=== PATIENT | female | born 1965 | race Two or more races ===

== ENCOUNTER 2023-10-22 05:24 | Inpatient (IN) | payer BC, MEDICARE ==
[~2023-10-22] VITALS: Ht 157.5 cm; Wt 98.9 kg
[2023-10-22 06:35] LABS: Basophils # (auto) 0 10 ^3/uL (0-0.2); Basophils % (auto) 0.5 % (0.0-2.0); Eosinophils # (auto) 0.2 10 ^3/uL (0-0.8); Eosinophils % (auto) 3.7 % (0.0-7.0); Hematocrit 33.3 % (36.0-46.0); Hemoglobin 11.4 g/dL (12.2-16.2); Lymphocytes % (auto) 21.3 % (10.0-50.0); Mean Corpuscular Hemoglobin 31.9 pg (28.0-32.0); Mean Corpuscular Hgb Conc. 34.1 g/dL (32.0-36.0); Mean Corpuscular Volume 93.6 fL (80.0-100.0); Monocytes # (auto) 0.4 10 ^3/uL (0-1.3); Monocytes % (auto) 9.1 % (0.0-12.0); Neutrophils % (auto) 65.4 % (37.0-80.0); Nucleated Red Blood Cells % 0.1 %; Red Blood Cells 3.55 10^6/uL (4.0-5.20); Red Cell Distribution Width 13.8 % (11.8-14.3); White Blood Cell 4.5 10^3/uL (4.4-10.8)
[2023-10-22 06:47] LABS: Alanine Aminotransferase 20 U/L (7-40); Albumin 4.2 g/dL (3.2-4.8); Alkaline Phosphatase 155 U/L (46-116); Anion Gap 14 (5-15); Aspartate Aminotransferase 25 U/L (13-40); BUN/Creatinine Ratio 16.9 (10.0-20.0); Blood Urea Nitrogen 30 mg/dL (9-23); Calcium 9.4 mg/dL (8.7-10.4); Carbon Dioxide 24 mmol/L (20-30); Chloride 102 mmol/L (98-107); Glucose 122 mg/dL (74-106); Potassium 3.3 mmol/L (3.5-5.1); Sodium 140 mmol/L (136-145)
[2023-10-22 06:48] LABS: Bilirubin, Total 0.7 mg/dL (0.2-1.0); Total Protein 7.4 g/dL (5.7-8.2)
[2023-10-22 06:57] VITALS: PULSE 112; RESP 24; O2SAT 97
[2023-10-22] MEDS: SODIUM CHLORIDE 0.9% 500 ML IV ONE (07:11)
[2023-10-22 07:45] VITALS: PULSE 120; RESP 18; O2SAT 96
[2023-10-22 07:57] LABS: Urine Bacteria FEW /hpf (None Seen); Urine Blood TRACE /uL (Negative); Urine Clarity Clear (Clear); Urine Color Light-Yellow (Yellow); Urine Protein, UAD 1+ (Negative); Urine Specific Gravity 1.014 (1.001-1.035); Urine Urobilinogen Normal (Negative); Urine WBC 6 /hpf (0 - 5); Urine pH 6.5 (5.0-9.0)
[2023-10-22] MEDS: IOHEXOL 350 MG/ML 100ML IJ ONE (08:33)
[2023-10-22] MEDS: LABETALOL HCL 20 MG/4 ML VL IV ONE (09:43)
[2023-10-22] MEDS ORDERED: MORPHINE SULFATE INJ 2 MG/ml SYRG IV PRN (11:15)
[2023-10-22] MEDS ORDERED: DOCUSATE SOD 100 MG CAP PO PRN (11:15)
[2023-10-22] MEDS ORDERED: ENOXAPARIN SOD 40 MG/0.4 ML SYRINGE SC SCH (11:15)
[2023-10-22] MEDS ORDERED: NITROGLYCERIN 0.4 MG SL TAB SL PRN (11:15)
[2023-10-22] MEDS ORDERED: ONDANSETRON HCL 4 MG/2 ML VIAL IV PRN (11:15)
[2023-10-22 11:42] LABS: Magnesium 2.1 mg/dL (1.6-2.6)
[2023-10-22 11:44] LABS: Phosphorus 4.3 mg/dL (2.4-5.1)
[2023-10-22] MEDS: SODIUM CHLORIDE 0.9% 1,000 ML IV SCH (14:26)
[2023-10-22] MEDS: POTASSIUM EFFERVESENT TAB 25 MEQ PO ONE (14:32)
[2023-10-22 16:01] LABS: COVID19 ANTIGEN SOFIA FIA NEGATIVE (NEGATIVE)
[2023-10-22 17:48] VITALS: BP 158/58; PULSE 80; RESP 19; TEMP 98.4; O2SAT 98
[2023-10-22] MEDS ORDERED: FURO40TA4 PO (18:08)
[2023-10-22] MEDS ORDERED: SEVE800T8 PO (18:08)
[2023-10-22] MEDS ORDERED: HYDR50TA47 PO (18:08)
[2023-10-22] MEDS ORDERED: AML5T PO (18:08)
[2023-10-22] MEDS: amLODIPine BESYLATE 5 MG TAB PO ONE (18:58)
[2023-10-22] MEDS: hydrALAZINE HCL 25 MG TAB PO ONE (18:58)
[2023-10-22 20:00] VITALS: PULSE 75; RESP 18; O2SAT 95
[2023-10-22 21:00] VITALS: BP_SYST 117; BP_SYST 146; BP_DIAS 61; PULSE 62; PULSE 86; RESP 20; TEMP 97.9; TEMP 98.6; O2SAT 93; O2SAT 95
[2023-10-22] MEDS: hydrALAZINE HCL 25 MG TAB PO SCH (21:46)
[2023-10-23] VITALS (8 sets, daily range): BP systolic 119–150; BP diastolic 49–58; PULSE 70–95; RESP 17–20; TEMP 89–98.6; O2SAT 92–96
[2023-10-23 07:06] LABS: Basophils # (auto) 0 10 ^3/uL (0-0.2); Basophils % (auto) 0.5 % (0.0-2.0); Eosinophils # (auto) 0.1 10 ^3/uL (0-0.8); Eosinophils % (auto) 3.7 % (0.0-7.0); Hematocrit 31.3 % (36.0-46.0); Hemoglobin 10.6 g/dL (12.2-16.2); Lymphocytes # (auto) 0.7 10 ^3/uL (0.4-5.4); Lymphocytes % (auto) 20.2 % (10.0-50.0); Mean Corpuscular Hemoglobin 32.2 pg (28.0-32.0); Mean Corpuscular Hgb Conc. 33.8 g/dL (32.0-36.0); Monocytes # (auto) 0.4 10 ^3/uL (0-1.3); Monocytes % (auto) 10.9 % (0.0-12.0); Neutrophils # (auto) 2.4 10 ^3/uL (1.6-8.6); Neutrophils % (auto) 64.7 % (37.0-80.0); Nucleated Red Blood Cells % 0.1 %; Red Blood Cells 3.29 10^6/uL (4.0-5.20); White Blood Cell 3.7 10^3/uL (4.4-10.8)
[2023-10-23 07:16] LABS: Alanine Aminotransferase 21 U/L (7-40); Albumin 3.7 g/dL (3.2-4.8); Alkaline Phosphatase 127 U/L (46-116); Anion Gap 9 (5-15); Aspartate Aminotransferase 23 U/L (13-40); BUN/Creatinine Ratio 12.9 (10.0-20.0); Blood Urea Nitrogen 20 mg/dL (9-23); Carbon Dioxide 22 mmol/L (20-30); Chloride 109 mmol/L (98-107); Glucose 109 mg/dL (74-106); Potassium 3.8 mmol/L (3.5-5.1); Sodium 140 mmol/L (136-145)
[2023-10-23 07:17] LABS: Bilirubin, Total 0.7 mg/dL (0.2-1.0); Total Protein 6.4 g/dL (5.7-8.2)
[2023-10-23] MEDS: amLODIPine BESYLATE 5 MG TAB PO SCH (10:12)
[2023-10-23] MEDS: METOPROLOL TARTRATE 50 MG TAB PO SCH (10:13)
[2023-10-24 01:00] VITALS: BP 123/47; PULSE 68; RESP 20; TEMP 98.4; O2SAT 94
[2023-10-24 05:00] VITALS: BP 116/56; PULSE 64; RESP 20; TEMP 98.2; O2SAT 92
[2023-10-24 05:47] LABS: Anion Gap 9 (5-15); Calcium 9.3 mg/dL (8.7-10.4); Carbon Dioxide 21 mmol/L (20-30); Chloride 107 mmol/L (98-107); Potassium 4.6 mmol/L (3.5-5.1); Sodium 137 mmol/L (136-145)
[2023-10-24 05:53] LABS: BUN/Creatinine Ratio 15.1 (10.0-20.0); Blood Urea Nitrogen 23 mg/dL (9-23); Glucose 91 mg/dL (74-106)
[2023-10-24 07:30] VITALS: PULSE 83; RESP 16
[2023-10-24 08:00] VITALS: PULSE 75
[2023-10-24 09:00] VITALS: BP 131/56; PULSE 82; RESP 20; TEMP 98.8; O2SAT 95
[2023-10-24 13:00] VITALS: BP 137/51; PULSE 80; RESP 18; TEMP 98.1; O2SAT 96
== END 2023-10-24 13:35 | disposition home or self-care (01) | DRG 304 ==
LOC: ER 05:24 → TELE 11:17 → TELE-WESTW 17:40
PROVIDERS: ADMIT Internal Medicine Geriatric Medicine; ATTEND Internal Medicine Geriatric Medicine
DX: I16.0 Hypertensive urgency (principal); N17.0 Acute kidney failure with tubular necrosis; N18.6 End stage renal disease; I12.0 Hypertensive chronic kidney disease with stage 5 chronic kidney disease or end stage renal disease; E87.6 Hypokalemia; D69.6 Thrombocytopenia, unspecified; E66.01 Morbid (severe) obesity due to excess calories; Z20.822 Contact with and (suspected) exposure to COVID-19; D63.8 Anemia in other chronic diseases classified elsewhere; Z68.39 Body mass index [BMI] 39.0-39.9, adult; Z83.3 Family history of diabetes mellitus; Z82.49 Family history of ischemic heart disease and other diseases of the circulatory system
CPT/HCPCS: 36415; 71045; 71275; 80048; 80053; 81001; 83735; 83880; 84100; 84443; 84484; 85025; 85379; 87426; 93005; 93306; 96361; 96374; G0378

== ENCOUNTER 2023-11-16 04:45 | Inpatient (IN) | payer MEDICARE, BC ==
[~2023-11-16] VITALS: Ht 157.5 cm; Wt 98.0 kg
[~2023-11-16 04:45] MED LIST: AML5T PO; FURO40TA4 PO; HYDR50TA47 PO; SEVE800T8 PO
[2023-11-16] MEDS: hydrALAZINE HCL 20 MG/ML VL IV ONE (06:14)
[2023-11-16 07:02] LABS: Basophils # (auto) 0 10 ^3/uL (0-0.2); Basophils % (auto) 0.6 % (0.0-2.0); Eosinophils # (auto) 0.1 10 ^3/uL (0-0.8); Eosinophils % (auto) 3.5 % (0.0-7.0); Hematocrit 34.4 % (36.0-46.0); Hemoglobin 11.8 g/dL (12.2-16.2); Lymphocytes # (auto) 0.8 10 ^3/uL (0.4-5.4); Lymphocytes % (auto) 18.6 % (10.0-50.0); Mean Corpuscular Hemoglobin 32.2 pg (28.0-32.0); Mean Corpuscular Hgb Conc. 34.4 g/dL (32.0-36.0); Mean Corpuscular Volume 93.6 fL (80.0-100.0); Monocytes # (auto) 0.4 10 ^3/uL (0-1.3); Neutrophils # (auto) 2.9 10 ^3/uL (1.6-8.6); Neutrophils % (auto) 68.3 % (37.0-80.0); Platelet Count (auto) 71 10^3/uL (140-450); Red Blood Cells 3.67 10^6/uL (4.0-5.20); Red Cell Distribution Width 13.6 % (11.8-14.3); White Blood Cell 4.2 10^3/uL (4.4-10.8)
[2023-11-16 07:18] LABS: Alanine Aminotransferase 22 U/L (7-40); Albumin 4.4 g/dL (3.2-4.8); Alkaline Phosphatase 174 U/L (46-116); Anion Gap 9 (5-15); Aspartate Aminotransferase 26 U/L (13-40); BUN/Creatinine Ratio 19.2 (10.0-20.0); Bilirubin, Total 0.5 mg/dL (0.2-1.0); Blood Urea Nitrogen 32 mg/dL (9-23); Calcium 9.4 mg/dL (8.7-10.4); Carbon Dioxide 24 mmol/L (20-30); Chloride 106 mmol/L (98-107); Glucose 127 mg/dL (74-106); Potassium 3.2 mmol/L (3.5-5.1); Sodium 139 mmol/L (136-145); Total Protein 7.5 g/dL (5.7-8.2)
[2023-11-16 08:00] LABS: Urine Bacteria MOD /hpf (None Seen); Urine Blood TRACE /uL (Negative); Urine Clarity Clear (Clear); Urine Color Light-Yellow (Yellow); Urine Protein, UAD 1+ (Negative); Urine Specific Gravity 1.012 (1.001-1.035); Urine Urobilinogen Normal (Negative); Urine WBC 7 /hpf (0 - 5); Urine pH 5.5 (5.0-9.0)
[2023-11-16 08:03] VITALS: PULSE 100; RESP 20; O2SAT 97
[2023-11-16] MEDS ORDERED: HYDROcodone-ACET 5/325MG TAB PO PRN (10:00)
[2023-11-16] MEDS ORDERED: HYDROmorphone HCL 2 MG/ML VL/or syr IV PRN (10:00)
[2023-11-16] MEDS ORDERED: ACETAMINOPHEN 325 MG TAB PO PRN (10:00)
[2023-11-16] MEDS ORDERED: hydrALAZINE HCL 20 MG/ML VL IV PRN (10:00)
[2023-11-16] MEDS ORDERED: amLODIPine BESYLATE 5 MG TAB PO SCH (10:00)
[2023-11-16] MEDS ORDERED: ONDANSETRON HCL 4 MG/2 ML VIAL IV PRN (10:00)
[2023-11-16] MEDS ORDERED: DOCUSATE SOD 100 MG CAP PO PRN (10:00)
[2023-11-16] MEDS: FUROSEMIDE 40 MG TAB PO SCH (10:10)
[2023-11-16] MEDS: amLODIPine BESYLATE 5 MG TAB PO SCH (10:11)
[2023-11-16] MEDS: SODIUM CHLOR 0.9% PF (SALINE LOCK) 10ML VIAL/SYR IV SCH (14:15)
[2023-11-16] MEDS: hydrALAZINE HCL 25 MG TAB PO SCH (15:00)
[2023-11-16 17:34] VITALS: BP 153/57; PULSE 74; RESP 20; TEMP 97.7; O2SAT 97
[2023-11-16 18:00] VITALS: PULSE 74; RESP 20; O2SAT 97
[2023-11-16 18:04] LABS: Chloride 106 mmol/L (98-107); Potassium 3.4 mmol/L (3.5-5.1); Sodium 139 mmol/L (136-145)
[2023-11-16 18:05] LABS: Anion Gap 9 (5-15); Calcium 9.3 mg/dL (8.7-10.4); Carbon Dioxide 24 mmol/L (20-30)
[2023-11-16 18:10] LABS: BUN/Creatinine Ratio 19.2 (10.0-20.0); Blood Urea Nitrogen 30 mg/dL (9-23); Glucose 116 mg/dL (74-106)
[2023-11-16 20:00] VITALS: PULSE 88; RESP 16; O2SAT 96
[2023-11-16 21:00] VITALS: BP 130/50; PULSE 79; RESP 18; TEMP 98.3; O2SAT 94
[2023-11-17 01:00] VITALS: BP 120/53; PULSE 84; RESP 17; TEMP 98.1; O2SAT 94
[2023-11-17 05:00] VITALS: BP 134/65; PULSE 78; RESP 18; TEMP 98.5; O2SAT 95
[2023-11-17 06:59] LABS: Basophils # (auto) 0 10 ^3/uL (0-0.2); Basophils % (auto) 0.5 % (0.0-2.0); Eosinophils # (auto) 0.1 10 ^3/uL (0-0.8); Eosinophils % (auto) 3.5 % (0.0-7.0); Hematocrit 31.9 % (36.0-46.0); Hemoglobin 10.8 g/dL (12.2-16.2); Lymphocytes # (auto) 0.9 10 ^3/uL (0.4-5.4); Lymphocytes % (auto) 24.9 % (10.0-50.0); Mean Corpuscular Hemoglobin 31.3 pg (28.0-32.0); Mean Corpuscular Hgb Conc. 33.7 g/dL (32.0-36.0); Monocytes # (auto) 0.3 10 ^3/uL (0-1.3); Monocytes % (auto) 8.8 % (0.0-12.0); Neutrophils # (auto) 2.4 10 ^3/uL (1.6-8.6); Neutrophils % (auto) 62.3 % (37.0-80.0); Nucleated Red Blood Cells % 0.1 %; Platelet Count (auto) 70 10^3/uL (140-450); Red Blood Cells 3.43 10^6/uL (4.0-5.20); Red Cell Distribution Width 13.3 % (11.8-14.3); White Blood Cell 3.8 10^3/uL (4.4-10.8)
[2023-11-17 07:15] LABS: Alanine Aminotransferase 18 U/L (7-40); Albumin 3.7 g/dL (3.2-4.8); Alkaline Phosphatase 115 U/L (46-116); Anion Gap 5 (5-15); Aspartate Aminotransferase 21 U/L (13-40); BUN/Creatinine Ratio 19.9 (10.0-20.0); Blood Urea Nitrogen 34 mg/dL (9-23); Calcium 8.9 mg/dL (8.7-10.4); Carbon Dioxide 27 mmol/L (20-30); Chloride 108 mmol/L (98-107); Glucose 92 mg/dL (74-106); Potassium 3.3 mmol/L (3.5-5.1); Sodium 140 mmol/L (136-145)
[2023-11-17 07:16] LABS: Bilirubin, Total 0.7 mg/dL (0.2-1.0); Total Protein 6.3 g/dL (5.7-8.2)
[2023-11-17 08:00] VITALS: PULSE 71; PULSE 78
[2023-11-17 08:40] VITALS: BP 128/46; PULSE 74; RESP 18; TEMP 97.7; O2SAT 97
[2023-11-17] MEDS: POTASSIUM EFFERVESENT TAB 25 MEQ PO ONE (11:42)
[2023-11-17 12:57] VITALS: BP 121/46; PULSE 78; RESP 18; TEMP 98.2; O2SAT 96
== END 2023-11-17 17:15 | disposition home or self-care (01) | DRG 304 ==
LOC: ER 04:45 → TELE 09:55 → TELE-CENTR 16:36
PROVIDERS: ADMIT Internal Medicine; ATTEND Internal Medicine
DX: I16.1 Hypertensive emergency (principal); N18.6 End stage renal disease; E11.22 Type 2 diabetes mellitus with diabetic chronic kidney disease; I12.0 Hypertensive chronic kidney disease with stage 5 chronic kidney disease or end stage renal disease; I25.10 Atherosclerotic heart disease of native coronary artery without angina pectoris; Z79.899 Other long term (current) drug therapy; Z82.49 Family history of ischemic heart disease and other diseases of the circulatory system; Z83.3 Family history of diabetes mellitus; Z79.4 Long term (current) use of insulin
CPT/HCPCS: 36415; 70450; 80048; 80053; 81001; 83880; 84484; 85025; 87081; 96374; 99291; G0378